=== PATIENT | female | born 1995 | race African-American/Black ===

== ENCOUNTER 2016-12-04 12:09 | Emergency (ER) | payer OTHER ==
[2016-12-04] MEDS ORDERED: IBUPROFEN 600 MG TABLET PO ONE (14:11)
== END 2016-12-04 14:43 | disposition home or self-care (01) ==
DX: J01.10 Acute frontal sinusitis, unspecified (principal); H92.03 Otalgia, bilateral
CPT/HCPCS: 99283; A9270

== ENCOUNTER 2017-02-17 19:11 | Emergency (ER) | payer OTHER ==
[2017-02-17] MEDS ORDERED: ALBUTEROL 8 GM INHALER INH STA (20:57)
[2017-02-17] MEDS ORDERED: ALBUTEROL 8 GM INHALER INH ONE (21:21)
[2017-02-17] MEDS ORDERED: AZITHROMYCIN 250 MG TABLET PO STA (21:29)
[2017-02-17] MEDS ORDERED: DEXAMETHASONE 10 MG/ML VIAL PO STA (21:29)
[2017-02-17] MEDS ORDERED: CHERRY SYRUP 10 ML UDC PO ONE (21:40)
[2017-02-17] MEDS ORDERED: AZITHROMYCIN 250 MG TABLET PO ONE (21:40)
[2017-02-17] MEDS ORDERED: DEXAMETHASONE 10 MG/ML VIAL ONE (21:40)
== END 2017-02-17 22:04 | disposition home or self-care (01) ==
DX: H66.91 Otitis media, unspecified, right ear (principal); J45.21 Mild intermittent asthma with (acute) exacerbation; K21.9 Gastro-esophageal reflux disease without esophagitis
CPT/HCPCS: 81001; 81025; 94640; 94664; 99283; A9270